=== PATIENT | male | born 1950 | race Two or more races ===

== ENCOUNTER → 2019-11-10 | Outpatient (CLI) | payer OTHER ==
[2019-11-10 08:45] LABS: Basophils # (auto) 0 10 ^3/uL (0-0.2); Basophils % (auto) 0.6 % (0.0-2.0); Eosinophils # (auto) 0.1 10 ^3/uL (0-0.8); Hemoglobin 18.1 g/dL (13.5-17.5); Monocytes # (auto) 0.4 10 ^3/uL (0-1.3); Neutrophils # (auto) 3.4 10 ^3/uL (1.6-8.6); Urine Bacteria NONE SEEN /hpf (None Seen); Urine Blood Negative /uL (Negative); Urine Mucus FEW (None Seen); Urine Specific Gravity 1.021 (1.001-1.035); Urine WBC 1 /hpf (0 - 3); White Blood Cell 5.9 10^3/uL (4.4-10.8)
[2019-11-10 08:47] LABS: Eosinophils % (auto) 1.3 % (0.0-7.0); Lymphocytes % (auto) 33.3 % (10.0-50.0); Mean Corpuscular Hemoglobin 33.1 pg (28.0-32.0); Mean Corpuscular Hgb Conc. 34.9 g/dL (32.0-36.0); Mean Corpuscular Volume 95.1 fL (80.0-100.0); Monocytes % (auto) 7.4 % (0.0-12.0); Neutrophils % (auto) 57.4 % (37.0-80.0); Nucleated Red Blood Cells % 0.4 %; Platelet Count (auto) 237 10^3/uL (140-450); Red Blood Cells 5.47 10^6/uL (4.5-5.90); Red Cell Distribution Width 12.8 % (11.8-14.3)
[2019-11-10 09:04] LABS: Albumin 3.9 g/dL (3.4-5.0); Potassium 4.4 mmol/L (3.5-5.1)
[2019-11-10 09:10] LABS: BUN/Creatinine Ratio 18.1; Bilirubin, Total 0.5 mg/dL (0.2-1.0); Calcium 9.1 mg/dL (8.5-10.1); Total Protein 8.1 g/dL (6.4-8.2)
[2019-11-10 09:11] LABS: Free T4 (Free Thyroxine) 1.08 ng/dL (0.89-1.76)
[2019-11-10 09:12] LABS: Folate (Folic Acid) > 24.00 ng/mL (5.38-24)
== END | disposition home or self-care (01) ==
LOC: LAB 08:14
PROVIDERS: ATTEND Internal Medicine
DX: I10 Essential (primary) hypertension (principal)
CPT/HCPCS: 36415; 80053; 80061; 81001; 82274; 82306; 82607; 82746; 83036; 84439; 84443; 85025

== ENCOUNTER → 2021-01-18 | Outpatient (CLI) | payer OTHER ==
[2021-01-18 07:37] LABS: Urine WBC None Seen /hpf (0 - 3)
[2021-01-18 07:43] LABS: Basophils # (auto) 0.1 10 ^3/uL (0-0.2); Eosinophils # (auto) 0.1 10 ^3/uL (0-0.8); Hemoglobin 17.8 g/dL (13.5-17.5); Mean Corpuscular Hemoglobin 33.8 pg (28.0-32.0); Monocytes # (auto) 0.5 10 ^3/uL (0-1.3); White Blood Cell 7.1 10^3/uL (4.4-10.8)
[2021-01-18 07:44] LABS: Basophils % (auto) 0.9 % (0.0-2.0); Hematocrit 49.6 % (41.0-53.0); Lymphocytes # (auto) 2.4 10 ^3/uL (0.4-5.4); Lymphocytes % (auto) 34.1 % (10.0-50.0); Mean Corpuscular Volume 93.9 fL (80.0-100.0); Monocytes % (auto) 6.9 % (0.0-12.0); Neutrophils % (auto) 56.1 % (37.0-80.0); Nucleated Red Blood Cells % 0.1 %; Red Blood Cells 5.28 10^6/uL (4.5-5.90); Red Cell Distribution Width 13.1 % (11.8-14.3)
[2021-01-18 07:50] LABS: Urine Bacteria NONE SEEN /hpf (None Seen); Urine Blood Negative /uL (Negative); Urine Mucus FEW (None Seen); Urine Specific Gravity 1.021 (1.001-1.035)
[2021-01-18 08:12] LABS: Albumin 3.7 g/dL (3.4-5.0); Calcium 8.9 mg/dL (8.5-10.1); Potassium 4.2 mmol/L (3.5-5.1); Uric Acid 4.3 mg/dL (3.5-7.2)
[2021-01-18 08:17] LABS: BUN/Creatinine Ratio 16.4; Bilirubin, Total 0.6 mg/dL (0.2-1.0); Total Protein 7.6 g/dL (6.4-8.2)
[2021-01-18 09:06] LABS: Prostate Specific Antigen 0.58 ng/mL (0.0-4.0)
[2021-01-18 09:07] LABS: Folate (Folic Acid) > 24.00 ng/mL (5.38-24)
== END | disposition home or self-care (01) ==
LOC: LAB 07:19
PROVIDERS: ATTEND Internal Medicine
DX: E78.5 Hyperlipidemia, unspecified (principal)
CPT/HCPCS: 36415; 80053; 80061; 80069; 81001; 82274; 82607; 82746; 84153; 84550; 85025; 86200

== ENCOUNTER → 2021-11-25 | Outpatient (CLI) | payer OTHER ==
[2021-11-25 09:03] LABS: Urine WBC None Seen /hpf (0 - 3)
[2021-11-25 09:14] LABS: Basophils # (auto) 0.2 10 ^3/uL (0-0.2); Basophils % (auto) 2.5 % (0.0-2.0); Eosinophils # (auto) 0.1 10 ^3/uL (0-0.8); Eosinophils % (auto) 1.6 % (0.0-7.0); Hematocrit 46.5 % (41.0-53.0); Hemoglobin 16.4 g/dL (13.5-17.5); Lymphocytes % (auto) 31.6 % (10.0-50.0); Mean Corpuscular Hemoglobin 33.2 pg (28.0-32.0); Mean Corpuscular Hgb Conc. 35.3 g/dL (32.0-36.0); Mean Corpuscular Volume 94.3 fL (80.0-100.0); Monocytes # (auto) 0.4 10 ^3/uL (0-1.3); Monocytes % (auto) 7.1 % (0.0-12.0); Neutrophils # (auto) 3.6 10 ^3/uL (1.6-8.6); Neutrophils % (auto) 57.2 % (37.0-80.0); Red Blood Cells 4.93 10^6/uL (4.5-5.90); Red Cell Distribution Width 12.9 % (11.8-14.3); White Blood Cell 6.2 10^3/uL (4.4-10.8)
[2021-11-25 09:31] LABS: Urine Bacteria NONE SEEN /hpf (None Seen); Urine Blood Negative /uL (Negative); Urine Mucus FEW (None Seen)
[2021-11-25 09:55] LABS: Potassium 4.1 mmol/L (3.5-5.1)
[2021-11-25 10:06] LABS: Albumin 3.6 g/dL (3.4-5.0); BUN/Creatinine Ratio 18.9; Bilirubin, Total 0.5 mg/dL (0.2-1.0); Calcium 9.1 mg/dL (8.5-10.1); Total Protein 7.5 g/dL (6.4-8.2)
== END | disposition home or self-care (01) ==
LOC: LAB 08:12
PROVIDERS: ATTEND Internal Medicine
DX: Z12.11 Encounter for screening for malignant neoplasm of colon (principal); E78.5 Hyperlipidemia, unspecified
CPT/HCPCS: 36415; 80053; 80061; 81001; 82274; 84153; 84443; 85025

== ENCOUNTER → 2021-12-19 | Outpatient (CLI) | payer OTHER | END | disposition home or self-care (01) | LOC: XYW 14:04 | PROVIDERS: ATTEND Internal Medicine | DX: I25.10 Atherosclerotic heart disease of native coronary artery without angina pectoris (principal) | CPT/HCPCS: 93306 ==

== ENCOUNTER → 2022-04-09 | Outpatient (CLI) | payer OTHER | END | disposition home or self-care (01) | LOC: LAB 10:37 | PROVIDERS: ATTEND Internal Medicine Pulmonary Disease | DX: Z01.812 Encounter for preprocedural laboratory examination (principal); Z20.822 Contact with and (suspected) exposure to COVID-19 | CPT/HCPCS: 36415; 87426 ==

== ENCOUNTER → 2022-04-10 | Outpatient (CLI) | payer OTHER ==
[~2022-04-10] MED LIST: ALBUTEROL SULF 2.5 MG/0.5ML(0.5%) NEB SOLN ONE
== END | disposition home or self-care (01) ==
LOC: RT 09:31
PROVIDERS: ATTEND Internal Medicine Pulmonary Disease
DX: J44.9 Chronic obstructive pulmonary disease, unspecified (principal)
CPT/HCPCS: 94060; 94727; 94729

== ENCOUNTER → 2022-05-05 | Outpatient (CLI) | payer OTHER | END | disposition home or self-care (01) | LOC: Rad HDHVI 14:59 | PROVIDERS: ATTEND Internal Medicine Cardiovascular Disease | DX: I65.23 Occlusion and stenosis of bilateral carotid arteries (principal); I10 Essential (primary) hypertension; E78.5 Hyperlipidemia, unspecified | CPT/HCPCS: 93880 ==

== ENCOUNTER → 2022-05-08 | Outpatient (CLI) | payer OTHER ==
[~2022-05-08] VITALS: Ht 170.2 cm; Wt 81.6 kg
== END | disposition home or self-care (01) ==
LOC: Rad HDHVI 08:50
PROVIDERS: ATTEND Internal Medicine Cardiovascular Disease
DX: I25.10 Atherosclerotic heart disease of native coronary artery without angina pectoris (principal); I10 Essential (primary) hypertension; J44.9 Chronic obstructive pulmonary disease, unspecified; I42.9 Cardiomyopathy, unspecified; E78.5 Hyperlipidemia, unspecified; I25.2 Old myocardial infarction; E78.00 Pure hypercholesterolemia, unspecified; F17.210 Nicotine dependence, cigarettes, uncomplicated; I45.10 Unspecified right bundle-branch block; Z13.0 Encounter for screening for diseases of the blood and blood-forming organs and certain disorders involving the immune mechanism; Z82.49 Family history of ischemic heart disease and other diseases of the circulatory system; Z79.899 Other long term (current) drug therapy
CPT/HCPCS: 78452; 93017; 96374; A9500

== ENCOUNTER → 2023-02-25 | Outpatient (CLI) | payer OTHER ==
[2023-02-25 07:28] LABS: Urine WBC None Seen /hpf (0 - 3)
[2023-02-25 07:34] LABS: Basophils # (auto) 0 10 ^3/uL (0-0.2); Basophils % (auto) 0.7 % (0.0-2.0); Eosinophils # (auto) 0.2 10 ^3/uL (0-0.8); Eosinophils % (auto) 3.2 % (0.0-7.0); Hematocrit 47.9 % (41.0-53.0); Hemoglobin 16.6 g/dL (13.5-17.5); Lymphocytes # (auto) 2.3 10 ^3/uL (0.4-5.4); Lymphocytes % (auto) 43.1 % (10.0-50.0); Mean Corpuscular Hemoglobin 33.1 pg (28.0-32.0); Mean Corpuscular Hgb Conc. 34.7 g/dL (32.0-36.0); Mean Corpuscular Volume 95.6 fL (80.0-100.0); Monocytes # (auto) 0.5 10 ^3/uL (0-1.3); Monocytes % (auto) 8.8 % (0.0-12.0); Neutrophils # (auto) 2.4 10 ^3/uL (1.6-8.6); Neutrophils % (auto) 44.2 % (37.0-80.0); Nucleated Red Blood Cells % 0.1 %; Red Blood Cells 5.01 10^6/uL (4.5-5.90); Red Cell Distribution Width 12.5 % (11.8-14.3); White Blood Cell 5.4 10^3/uL (4.4-10.8)
[2023-02-25 07:42] LABS: Urine Bacteria NONE SEEN /hpf (None Seen); Urine Blood Negative /uL (Negative); Urine Clarity Clear (Clear); Urine Color Colorless (Yellow); Urine Protein, UAD Negative (Negative); Urine Specific Gravity 1.012 (1.001-1.035); Urine Urobilinogen Normal (Negative); Urine pH 6.5 (5.0-8.0)
[2023-02-25 08:14] LABS: Alanine Aminotransferase 16 U/L (7-40); Alkaline Phosphatase 49 U/L (46-116); Calcium 9.1 mg/dL (8.5-10.1); Carbon Dioxide 22.1 mmol/L (20-30); Chloride 109 mmol/L (98-107); Triglycerides 154 mg/dL (< 150)
[2023-02-25 08:15] LABS: Albumin 4.2 g/dL (3.2-4.8); Anion Gap 7.9 (5-15); BUN/Creatinine Ratio 12.5 (10.0-20.0); Blood Urea Nitrogen 13 mg/dL (9-23); Glucose 109 mg/dL (74-106); LDL Cholesterol 162 mg/dL (< 100); Sodium 139 mmol/L (136-145)
[2023-02-25 08:16] LABS: Aspartate Aminotransferase 11 U/L (13-40); Bilirubin, Total 0.5 mg/dL (0.2-1.0); Cholesterol 220 mg/dL (< 200); HDL Cholesterol 34 mg/dL (40-59); Total Protein 6.9 g/dL (5.7-8.2)
== END | disposition home or self-care (01) ==
LOC: LAB 07:18
PROVIDERS: ATTEND Internal Medicine
DX: Z13.1 Encounter for screening for diabetes mellitus (principal); I10 Essential (primary) hypertension; I25.10 Atherosclerotic heart disease of native coronary artery without angina pectoris
CPT/HCPCS: 36415; 80053; 80061; 81001; 82274; 83036; 85025

== ENCOUNTER 2024-02-24 20:13 | Emergency (ER) | payer OTHER ==
[~2024-02-24] VITALS: Ht 167.6 cm; Wt 80.0 kg
[2024-02-24 23:55] VITALS: BP 142/87; PULSE 73; RESP 16; TEMP 98.1; O2SAT 94
[2024-02-25] MEDS: traMADol HCL 50 MG TAB PO ONE (00:02)
== END 2024-02-25 00:04 | disposition home or self-care (01) ==
LOC: ER 20:13
DX: S92.422A Displaced fracture of distal phalanx of left great toe, initial encounter for closed fracture (principal); I10 Essential (primary) hypertension; E78.5 Hyperlipidemia, unspecified; F17.210 Nicotine dependence, cigarettes, uncomplicated; Z98.890 Other specified postprocedural states; W20.8XXA Other cause of strike by thrown, projected or falling object, initial encounter; Y93.89 Activity, other specified; Y92.89 Other specified places as the place of occurrence of the external cause; Y99.8 Other external cause status
CPT/HCPCS: 73630

== ENCOUNTER → 2024-05-30 | Outpatient (CLI) | payer OTHER ==
[~2024-05-30] VITALS: Ht 170.2 cm; Wt 81.6 kg
[2024-05-30] MEDS: REGADENOSON 0.4 MG/5 ML SYRG IV ONE ×2 (10:58)
--- NOTE | 2024-05-30 13:18 | DVHSR ---
APPROVED REPORT Exam: Nuclear Stress Test Indication: CAD Stress Tech: Bernadette Roth Ht: 5 ft 7 in Wt: 180 lbs BSA: 1.93 m2 BMI: 28.18 Medical History Medical History: CHF, HTN, DYSLIPIDEMIA Stress Test Details Stress Test: Pharmacologic stress testing performed using 0.4 mg of regadenoson per 5 mL given IV ov er 10 seconds. Reason for pharmacologic stress test: CAD. HR Resting HR: 71 bpmMax Heart Rate (APMHR): 148.286660 bpm Max HR Achieved: 101 bpmTarget HR (85% APMHR): 125.004548 bpm % of APMHR: 68.24 Recovery HR: 88 bpm BP Resting BP: 143/72 mmHg Recovery BP: 134/75 mmHg ECG Resting ECG: Sinus Rhythm Clinical Reason for Termination: Completed protocol Nurse Comments Received patient from Nuclear Medicine. Patient is A&O x4 and on RA. FOR VS please refer back to st ress test assessment documentation. Patient is connected to central supply supervisor. See cardio-neuro proce dural notes for addtional details. PIV flushes well. Reviewed POC and patient verbalizes understand ing and consents to test. Lexiscan stress test performed per protocol. equipment maint tech administered the Cardiolite. Pat ient tolerated well and vitals returned to baseline. Transferred to Nuclear Medicine via wheelchair with tech in stable condition. Stress ECG Conclusion Resting images shows near homogeneous uptake of radioactive tracer throughout the myocardium without evidence of myocardial infarction. Stress images shows near homogeneous uptake of radioactive tracer throughout the myocardium with evid ence of myocardial ischemia. Well-preserved left ventricular systolic function at 59%. Impression: Negative stress test for ischemia, low risk study. NM EXAM: Myocardial Perfusion REST/STRESS Imaging Protocol: Rest Tc-99m/Stress Tc-99m 1 day Resting Data Rest SPECT myocardial perfusion imaging was performed in supine position 60 minutes following the int ravenous injection of 11.6 mCi of Tc-99m Sestamibi. Time of rest injection: 944 Time of rest imagin Administration Route: IV Administration Site: Left Wrist Pharmacologic Stress Pharmacologic stress test was performed by injecting Regadenoson 0.4 mg IV push followed by the intra venous injection of 34.4 mCi of Tc-99m Sestamibi. Time of stress injection: 1054 Date: 05/30/2024 Time of stress imagin Date: 05/30/2024 Administration Route: IV Administration Site: Left Wrist Gated Stress SPECT was performed 60 minutes after stress injection. The images were gated to evaluate regional wall motion and calculate left ventricular ejection fracti on. Stress only was performed in the Supine position. Nuclear Conclusion ECG Findings: negative for ischemia Clinical Findings: negative for ischemia Nuclear Findings: negative for ischemia Exercise Capacity: not assessed Left Ventricular Function: normal Risk Study: low Resting images shows near homogeneous uptake of radioactive tracer throughout the myocardium without evidence of myocardial infarction. Stress images shows near homogeneous uptake of radioactive tracer throughout the myocardium with evid ence of myocardial ischemia. Well-preserved left ventricular systolic function at 59%. Impression: Negative stress test for ischemia, low risk study.
== END | disposition home or self-care (01) ==
LOC: XYW 09:16
PROVIDERS: ATTEND Internal Medicine
DX: I25.10 Atherosclerotic heart disease of native coronary artery without angina pectoris (principal); E78.5 Hyperlipidemia, unspecified; I11.0 Hypertensive heart disease with heart failure; I50.9 Heart failure, unspecified
CPT/HCPCS: 78452; 93017; A9500; J2785

== ENCOUNTER → 2024-06-06 | Outpatient (CLI) | payer OTHER | END | disposition home or self-care (01) | LOC: RT 10:44 | PROVIDERS: ATTEND Internal Medicine Pulmonary Disease | DX: J44.9 Chronic obstructive pulmonary disease, unspecified (principal); R06.09 Other forms of dyspnea; F17.210 Nicotine dependence, cigarettes, uncomplicated | CPT/HCPCS: 94060; 94618; 94727; 94729 ==

== ENCOUNTER → 2025-01-14 | Day surgery (SDC) | payer OTHER ==
[2025-01-09 11:42] LABS: Hematocrit 49.4 % (41.0-53.0); Hemoglobin 17.4 g/dL (13.5-17.5); Mean Corpuscular Hemoglobin 33.5 pg (28.0-32.0); Mean Corpuscular Volume 95.1 fL (80.0-100.0); Nucleated Red Blood Cells % 0.2 %
[2025-01-09 11:47] LABS: INR 1.07 (0.9-1.15); Partial Thromboplastin Time 28.8 SEC (24.5-34.5); Prothrombin Time 11.3 sec (9.3-11.8)
[2025-01-09 12:59] LABS: Alanine Aminotransferase 21 U/L (7-40); Alkaline Phosphatase 54 U/L (46-116); Calcium 10.4 mg/dL (8.7-10.4); Carbon Dioxide 23 mmol/L (20-31); Chloride 107 mmol/L (98-107)
[2025-01-09 13:00] LABS: Albumin 4.7 g/dL (3.2-4.8); Anion Gap 10 (5-15); BUN/Creatinine Ratio 15.9 (10.0-20.0); Bilirubin, Total 0.6 mg/dL (0.2-1.0); Blood Urea Nitrogen 18 mg/dL (9-23); Glucose 93 mg/dL (74-106); Potassium 4.4 mmol/L (3.5-5.1); Sodium 140 mmol/L (136-145); Total Protein 7.5 g/dL (5.7-8.2)
[~2025-01-14] VITALS: Ht 167.6 cm; Wt 78.0 kg
[~2025-01-14] MED LIST changes: -ALBUTEROL SULF 2.5 MG/0.5ML(0.5%) NEB SOLN ONE; +CHOL25CH3 PO; +CLOP75TA70 PO; +CYAN-17 PO; +FLUMAZENIL 0.1 MG/ML INJ 10ML MDV IV ONE; +FOLITAB22 PO; +MAGN400T40 PO; +NALOXONE HCL 0.4 MG/ML VIAL ONE; +RAMI2.5C33 PO; +SIMV40TA18 PO; +diphenhdrAMINE HCL 50 MG/1 ML VL ONE
[2025-01-14] MEDS: MIDAZOLAM HCL 2MG/2ML 2ml VIAL (1mg/ml) ONE (08:02)
[2025-01-14] MEDS: fentaNYL CITRATE 100 MCG/2 ML VL ONE (08:02)
--- NOTE | 2025-01-14 08:19 | DVHNC2 ---
Procedure - PROCEDURE DATE: JANUARY 14, 2025 PERFORMED BY: DR. MTZ REFERRING PROVIDER:DR REEVES PROCEDURE PERFORMED: 1. COLONOSCOPY WITH MODERATE SEDATION PREPROCEDURE DIAGNOSIS: 1. COLON CANCER SCREENING POSTPROCEDURE DIAGNOSIS: 1. INTERNAL/EXTERNAL HEMORRHOIDS 2. MODERATE DIVERTICULOSIS MEDICATIONS USED: 4MG OF VERSED AND 100 MCG OF FENTANYL IV INDICATIONS FOR PROCEDURE: THE PATIENT IS A 74-YEAR-OLD MALE PRESENTS FOR OUTPATIENT COLONOSCOPY FOR SCREENING DETAILS OF THE PROCEDURE: INFORMED CONSENT WAS OBTAINED AFTER RISKS BENEFITS AND ALTERNATIVES WERE DISCUSSED AT LENGTH WITH THE PATIENT. THE PATIENT GAVE CONSENT TO THE PROCEDURES WELL A MEDICATION USED FOR SEDATION. THE PATIENT WAS PLACED IN THE LEFT LATERAL DECUBITUS POSITION. DIGITAL RECTAL EXAMINATION SHOWED SMALL EXTERNAL HEMORRHOIDS. AN OLYMPUS VARIABLE TORSION ADULT COLONOSCOPE WAS INSERTED INTO THE RECTUM ADVANCE THE CECUM. THE SCOPE WAS THEN WITHDRAWN. THE PREP WAS GOOD WITH ONLY SMALL AMOUNTS OF STOOL. THERE WERE NO LARGE POLYPS, MASSES, STRICTURES, OR ARTERIOVENOUS MALFORMATION SEEN. THE PATIENT HAD MODERATE MODERATE LEFT SIDED DIVERTICULOSIS. RETROFLEXION SHOWED INTERNAL HEMORRHOIDS. PATIENT TOLERATED THE PROCEDURE WELL. COLONOSCOPY START TIME: 807 COLONOSCOPY CECUM TIME: 809 COLONOSCOPY END TIME: 815 PREP SCORE: 9 IMPRESSION: 1. INTERNAL AND EXTERNAL HEMORRHOIDS 2. DIVERTICULOSIS RECOMMENDATIONS: 1. FOLLOW UP WITH PRIMARY CARE PHYSICIAN 2. HIGH-FIBER DIET 3. REPEAT COLONOSCOPY ONLY INDICATED I WOULD LIKE TO THANK DR. REEVES FOR THE REFERRAL CORRIE MTZ MD Jan 14, 2025 08:19
[2025-01-14 08:40] VITALS: BP 115/70; PULSE 72; RESP 15; O2SAT 98
== END | disposition home or self-care (01) ==
LOC: GI 07:15
PROVIDERS: ATTEND Specialist
DX: Z12.11 Encounter for screening for malignant neoplasm of colon (principal); K57.30 Diverticulosis of large intestine without perforation or abscess without bleeding; K64.4 Residual hemorrhoidal skin tags; K64.8 Other hemorrhoids; I10 Essential (primary) hypertension; I25.2 Old myocardial infarction; Z79.899 Other long term (current) drug therapy; Z95.5 Presence of coronary angioplasty implant and graft; Z98.890 Other specified postprocedural states
CPT/HCPCS: 36415; 45378; 80053; 85025; 85610; 85730; J2250; J3010; 99152